=== PATIENT | male | born 1980 | race Caucasian/White ===

== ENCOUNTER 2018-04-24 20:09 | Emergency (ER) | payer OTHER ==
[2018-04-24 20:30] VITALS: BP 136/82
[2018-04-24] MEDS ORDERED: AMOX/CLAV 875 MG/125 MG TABLET PO STA (20:39)
[2018-04-24] MEDS ORDERED: HYDROcod/ACET 5/325 Prepack 4 PO STA (20:39)
--- NOTE | 2018-04-24 20:41 | ED Physician Documentation ---
History of Present Illness - Stated complaint Stated Complaint: SWOLLEN RT FACE - Chief complaint Chief Complaint: General - History obtained from History obtained from: Patient - History of Present Illness Timing: Today (This is a 37-year-old gentleman who is active duty in the [employer] who developed acutely painful swelling over the right jaw today associated with body aches and fevers. No recent travel, no cat scratches. He does not have any health problems. He said he had a similar episode a couple of months ago and did not seek medical treatment and it resolved with Motrin at home. He notes no night sweats or weight loss.) Review of Systems Constitutional: reports: Fever, Chills. denies: Fatigue, Weight Loss, Sweats Ears: denies: Loss of hearing, Ear pain Nose: denies: Rhinorrhea / runny nose, Congestion Throat: denies: Sore throat Cardiac: denies: Chest pain / pressure, Palpitations Respiratory: denies: Dyspnea, Cough PD PAST MEDICAL HISTORY - Past Medical History Past Medical History: No Cardiovascular: None Respiratory: None Neuro: None Endocrine/Autoimmune: None GI: None : None HEENT: Chronic sinusitis Psych: None Musculoskeletal: None Derm: None - Past Surgical History Past Surgical History: Yes HEENT: Other - Present Medications Home Medications: Ambulatory Orders Medication Instructions Recorded Confirmed Amox/Clav 875/125 [Augmentin] 1 each PO Q12H #20 tablet 04/24/18 HYDROcod/ACETAM 5/325 [Delmont 5/325] 1 - 2 ea PO Q6H PRN #7 tablet 04/24/18 - Allergies Allergies/Adverse Reactions: Allergies Allergy/AdvReac Type Severity Reaction Status Date / Time No Known Drug Allergies Allergy Verified 04/24/18 20:27 - Social History Does the pt smoke?: No Smoking Status: Never smoker Does the pt drink ETOH?: No Does the pt have substance abuse?: No - Immunizations Immunizations are current?: Yes - POLST Patient has POLST: No PD ED PE NORMAL - Vitals Vital signs reviewed: Yes - General General: Alert and oriented X 3, No acute distress - HEENT HEENT: Ears normal, Pharynx benign, Other (He has a pretty large and tender about 3 cm posterior submandibular lymph node, no other notable adenopathy about the head or neck. I do not see any obvious dental issues, he does have a lot of cavities. No rash or herpes.) - Cardiac Cardiac: RRR, No murmur - Respiratory Respiratory: No respiratory distress, Clear bilaterally - Abdomen Abdomen: Non tender - Psych Psych: Normal mood, Normal affect Results - Vitals Vitals: Vital Signs - 24 hr 04/24/18 20:20 Temperature 37.7 C H Heart Rate 99 Respiratory 20 Rate Blood Pressure 136/82 H O2 Saturation 99 Oxygen O2 Source Room air PD MEDICAL DECISION MAKING - ED course ED course: This is a 37-year-old gentleman with acute unilateral likely bacterial lymphadenitis. He is treated with Augmentin and follow-up with his primary care physician was advised. - Sepsis Event Vital Signs: Vital Signs - 24 hr 04/24/18 20:20 Temperature 37.7 C H Heart Rate 99 Respiratory 20 Rate Blood Pressure 136/82 H O2 Saturation 99 Oxygen O2 Source Room air Departure - Departure Disposition: 01 Home, Self Care Clinical Impression: Lymphadenitis Condition: Good Record reviewed to determine appropriate education?: Yes Instructions: ED Cervical Adenitis Abx Tx Prescriptions: Amox/Clav 875/125 [Augmentin] 1 each PO Q12H #20 tablet HYDROcod/ACETAM 5/325 [Delmont 5/325] 1 - 2 ea PO Q6H PRN #7 tablet PRN Reason: Pain Comments: Call your doctor to arrange a follow-up appointment, make the next available appointment. In the interim, return anytime if worse or if new symptoms develop.
== END 2018-04-24 20:49 | disposition home or self-care (01) ==
LOC: ED 20:09
DX: I88.9 Nonspecific lymphadenitis, unspecified (principal)
CPT/HCPCS: 99283; A9270

== ENCOUNTER 2019-05-05 07:36 | Outpatient (CLI) | payer OTHER ==
[2019-05-05] MEDS ORDERED: GADOBUTROL 10 MMOL/10 ML VIAL ONE (08:28)
[2019-05-05] MEDS ORDERED: GADOBUTROL 10 MMOL/10 ML VIAL IV ONE (08:30)
--- NOTE | 2019-05-05 17:35 | MRI Report ---
Reason: LOW BACK PAIN Procedure Date: 05/05/2019 Accession Number: [id number] / [id number] Procedure: MRI - Lumbar Spine W/WO CPT Code: FULL RESULT: EXAM: MRI LUMBAR SPINE WITHOUT AND WITH CONTRAST. EXAM DATE: 05/05/2019 08:06 AM. CLINICAL HISTORY: Low back pain. Symptoms worsening recently. COMPARISONS: None. TECHNIQUE: Multiplanar, multisequence T1-weighted and fluid-sensitive sequences of the lumbar spine from T12 to S1 before and after administration of intravenous contrast. Other: None. IV contrast: 10 cc Gadavist. FINDINGS: Neurologic Structures: The conus terminates at T12-L1. The conus medullaris and cauda equina are unremarkable. No abnormal enhancement is seen within the thecal sac. Alignment: Mild, 3 mm, spondylolisthesis is seen at L5-S1. L5 bilateral spondylolysis is present. No bone marrow or paraspinous edema is seen at the level of the pars interarticularis defects. Bone Marrow: Five mry-yai-dlhageg lumbar vertebral bodies are assumed. No gross fractures or bone lesions. No bone marrow replacement or abnormal enhancement. Disk Levels/Facets: T12-L1: Unremarkable. L1-L2: Unremarkable. L2-L3: Unremarkable. L3-L4: Unremarkable. L4-L5: Unremarkable. L5-S1: Unremarkable. Spinal Canal: No enhancing masses within the spinal canal. No epidural abscess. The spinal canal is capacious. Musculature: Normal. No edema, abnormal enhancement, or fatty atrophy. Other: The visualized retroperitoneum is unremarkable. IMPRESSION: 1. L5 bilateral spondylolysis with pars interarticularis defects. Mild, 3 mm, spondylolisthesis is seen. No adjacent bone marrow or paraspinous edema or enhancement is seen to suggest acute injury. 2. Unremarkable MRI of the lumbar spine. No significant spondylosis. No canal, lateral recess, or foraminal stenosis. Comment: The following findings are so common in adults without low back pain that while we report their presence, they must be interpreted with caution and in the context of the clinical situation. (Reference Meagank et al, Spine 2001) Prevalence of findings in patients without low back pain: Disk degeneration (any evidence): 92% Disk desiccation/T2 signal loss: 83% Disk height loss: 56% Disk bulge: 64% Disk protrusion: 32% Annular tear/high intensity zone: 38% RADIA
== END 2019-05-05 07:37 | disposition home or self-care (01) ==
LOC: DI 07:36
PROVIDERS: ATTEND General Practice
DX: M43.07 Spondylolysis, lumbosacral region (principal)
CPT/HCPCS: 72158; A9585

== ENCOUNTER 2019-06-11 07:49 | Outpatient (CLI) | payer OTHER ==
[2019-06-11] MEDS ORDERED: GADOBUTROL 15 MMOL/15 ML VIAL ONE (08:16)
[2019-06-11] MEDS ORDERED: GADOBUTROL 15 MMOL/15 ML VIAL IV ONE (10:10)
--- NOTE | 2019-06-11 14:47 | MRI Report ---
Reason: DORSALGIA, UNSPECIFIED Procedure Date: 06/11/2019 Accession Number: [id number] / [id number] Procedure: MRI - Thoracic Spine W/WO CPT Code: FULL RESULT: EXAM: MRI THORACIC SPINE WITHOUT AND WITH CONTRAST EXAM DATE: 06/11/2019 09:11 AM. CLINICAL HISTORY: 39-year-old with mid back pain that feels like a knife sticking in the back. Evaluate for thoracic pathology. COMPARISONS: MR lumbar spine 05/05/2019. TECHNIQUE: Multiplanar, multisequence T1-weighted and fluid-sensitive sequences of the thoracic spine from C7 to L1 before and after administration of intravenous contrast. Other: None. IV contrast: 11 mL Gadavist. FINDINGS: Spinal Cord: No signal abnormality in the visualized spinal cord. Alignment: No scoliosis or spondylolisthesis. Bone Marrow: No gross fractures or bone lesion. No bone marrow edema or abnormal enhancement. Disk Levels/Facets: C7-T1: Unremarkable. T1-T2: Unremarkable. T2-T3: Unremarkable. T3-T4: Unremarkable. T4-T5: Unremarkable. T5-T6: Unremarkable. T6-T7: Unremarkable. T7-T8: Unremarkable. T8-T9: Unremarkable. T9-T10: Unremarkable. T10-T11: Unremarkable. T11-T12: Unremarkable. T12-L1: Unremarkable. Spinal Canal: No enhancing masses within the spinal canal. No epidural abscess. Musculature: Normal. No edema, enhancement, or fatty atrophy. Other: The visualized mediastinum appears normal. Dependent atelectatic changes. Visualized upper abdomen appears normal. IMPRESSION: 1. No definite discitis/osteomyelitis seen. No epidural abscess or phlegmon. 2. No definite intraspinal mass or mass-like enhancement. 3. No definite disk bulge or protrusion seen within the thoracic spine. 4. No spinal canal stenosis or definite neural foraminal narrowing within the thoracic spine. RADIA
== END 2019-06-11 07:50 | disposition home or self-care (01) ==
LOC: DI 07:49
PROVIDERS: ATTEND General Practice
DX: M54.9 Dorsalgia, unspecified (principal)
CPT/HCPCS: 72157; A9585

== ENCOUNTER 2020-12-06 12:57 | Emergency (ER) | payer OTHER ==
[2020-12-06] MEDS ORDERED: TETANUS/DIPHTHERIA/PERTUSSIS 0.5 ML SYRINGE IM ONE (13:13)
--- NOTE | 2020-12-06 13:19 | ED Physician Documentation ---
History of Present Illness - Stated complaint Stated Complaint: L HAND INJURY - Chief complaint Chief Complaint: Wound - History obtained from History obtained from: Patient - Additonal information Additional information: 40-year-old male presents the emergency department for evaluation of a left thumb injury. He reports that on or about he cut the tip of his left thumb on a razor blade. He addressed the laceration at home and felt it had started to heal however he bumped or reinjured it multiple times causing it to open up and bleed. Since then he has had progressive swelling of the left thumb predominantly on the fat pad. He is a former [employer] retired 2 years he was seen at [facility] last week and completed a 1 week long course of amoxicillin today without relief of infection. He was seen again today and received a referral to hand surgery however due to the pain he does not feel that he can wait and presents to the emergency department. He denies any fevers, no red streaking. No history of MRSA infection. He is right-hand dominant. Review of Systems Constitutional: reports: Reviewed and negative Ears: reports: Reviewed and negative Nose: reports: Reviewed and negative Throat: reports: Reviewed and negative Cardiac: reports: Reviewed and negative Respiratory: reports: Reviewed and negative GI: reports: Reviewed and negative : reports: Reviewed and negative Skin: reports: Lesions (fat pad left thumb) Musculoskeletal: reports: Reviewed and negative Neurologic: reports: Reviewed and negative PD PAST MEDICAL HISTORY - Past Medical History Cardiovascular: None Respiratory: None Neuro: None Endocrine/Autoimmune: None GI: None : None HEENT: Chronic sinusitis Psych: None Musculoskeletal: None Derm: None - Past Surgical History Past Surgical History: Yes HEENT: Other - Present Medications Home Medications: Ambulatory Orders Medication Instructions Recorded Confirmed Sulfamethox/Trimeth 800/160 1 each PO BID #20 tablet 12/06/20 [Bactrim Ds 800/160] oxyCODONE [Roxicodone] 10 mg PO PRN PRN 12/06/20 12/06/20 - Allergies Allergies/Adverse Reactions: Allergies Allergy/AdvReac Type Severity Reaction Status Date / Time No Known Drug Allergies Allergy Verified 12/06/20 13:04 - Social History Does the pt smoke?: No Smoking Status: Never smoker Does the pt drink ETOH?: No Does the pt have substance abuse?: No - Immunizations Immunizations are current?: Yes - POLST Patient has POLST: No PD ED PE EXPANDED - Extremities Extremities: Left finger(s) (Left thumb swelling and erythema distal to the DIP. Fat pad itself is tender erythematous with healing scab distal tip. Tense fluid collection felt under fat pad) Results - Vitals Vitals: Vital Signs - 24 hr 12/06/20 13:00 Temperature 36.7 C Heart Rate 90 Respiratory 18 Rate Blood Pressure 138/92 H O2 Saturation 99 Oxygen O2 Source Room air - Rads (name of study) left thumb: Radiology: EMP read indepedently (No fracture, no foreign body. No evidence of osseous or bony destruction) PD MEDICAL DECISION MAKING - ED course Complexity details: reviewed results, re-evaluated patient, considered differential, d/w patient, d/w database reporting consultant (Allyssa) ED course: 40-year-old male presents the emergency department for evaluation of left thumb infection. This infection initially began on 11 November when cutting the tip of his finger on a razor blade. He did not initially seek medical care and felt that the laceration had healed but after multiple repeat traumas to the thumb he has developed an infection consistent with a felon. He completed a weeklong course of amoxicillin without relief of pain. He saw [facility] today and they referred him to hand surgery. He does not feel that he can wait that long. I discussed this case with on-call orthopedic Dr. Spivey. He would like to see the patient in office on . Office staff reports that they are working on prior authorization. I will initiate Bactrim twice daily for the next 10 days. Patient has an active prescription for Percocet. We will also recommend warm salt water soaks. Emergent return precautions discussed for worsening infection Departure - Departure Disposition: Home, Self Care Clinical Impression: Felon of finger of left hand Condition: Stable Record reviewed to determine appropriate education?: Yes Follow-Up: Chad Spivey MD [Provider Admit Priv/Credential] - Prescriptions: Sulfamethox/Trimeth 800/160 [Bactrim Ds 800/160] 1 each PO BID #20 tablet Comments: Mark I would like you to fill the prescription for the Bactrim and begin taking twice daily for the next 10 days. Please soak your thumb in warm Epson salt water 2-3 times a day. I have spoken with our on-call orthopedic surgeon Dr. Spivey. He would like to see you in office on . If you do not hear back from the office staff later this afternoon or early tomorrow morning please call tomorrow afternoon to confirm the appointment.Mark I would like you to fill the prescription for the Bactrim and begin taking twice daily for the next 10 days. Please soak your thumb in warm Epson salt water 2-3 times a day. I have spoken with our on-call orthopedic surgeon Dr. Spivey. He would like to see you in office on . If you do not hear back from the office staff later this afternoon or early tomorrow morning please call tomorrow afternoon to confirm the appointment.
[2020-12-06] MEDS ORDERED: SULFAMETH/TRIMETH DS 800/160 MG TABLET PO STA (13:22)
--- NOTE | 2020-12-06 13:42 | XRAY Report ---
PROCEDURE: Finger(s) LT INDICATIONS: felon left thumb TECHNIQUE: AP hand, 2 views of the first finger(s) acquired. COMPARISON: None FINDINGS: Bones: No fractures or dislocations. No suspicious bony lesions. Soft tissues: No suspicious soft tissue calcifications. IMPRESSION: No gross acute left thumb fracture or dislocation. Reviewed by: Ariel Walker MD on 12/06/2020 1:41 PM PST Approved by: Ariel Walker MD on 12/06/2020 1:41 PM [facility] Station ID: [id number]
[2020-12-06 13:43] VITALS: BP 141/90
== END 2020-12-06 13:43 | disposition home or self-care (01) ==
LOC: ED 12:57
DX: L03.012 Cellulitis of left finger (principal); S61.012D Laceration without foreign body of left thumb without damage to nail, subsequent encounter; W27.8XXD Contact with other nonpowered hand tool, subsequent encounter; Z23 Encounter for immunization
CPT/HCPCS: 73140; 90471; 90715; 99281; 99283; A9270

== ENCOUNTER 2020-12-08 14:28 | Outpatient (CLI) | payer OTHER | END 2020-12-08 23:59 | disposition home or self-care (01) | LOC: LAB.N 14:28 | PROVIDERS: ATTEND Orthopaedic Surgery | DX: L03.019 Cellulitis of unspecified finger (principal) | CPT/HCPCS: 87070; 87181; 87205 ==

== ENCOUNTER 2020-12-09 19:22 | Emergency (ER) | payer OTHER ==
[2020-12-09 19:29] VITALS: BP 153/92
--- NOTE | 2020-12-09 20:42 | ED Physician Documentation ---
History of Present Illness - Stated complaint Stated Complaint: LT THUMB LAC - Chief complaint Chief Complaint: Laceration - History obtained from History obtained from: Patient - History of Present Illness Timing: Today Pain level max: 6 Pain level now: 6 - Additonal information Additional information: Patient states he was instructed to remove the packing from his left thumb tonight. States unable to remove. Saw orthopedics yesterday. Review of Systems Constitutional: denies: Fever, Chills PD PAST MEDICAL HISTORY - Past Medical History Cardiovascular: None Respiratory: None Neuro: None Endocrine/Autoimmune: None GI: None : None HEENT: Chronic sinusitis Psych: None Musculoskeletal: None Derm: None - Past Surgical History Past Surgical History: Yes HEENT: Other - Present Medications Home Medications: Ambulatory Orders Medication Instructions Recorded Confirmed oxyCODONE [Roxicodone] 10 mg PO PRN PRN 12/06/20 12/09/20 cephALEXin [Keflex] 500 mg PO QID 12/09/20 12/09/20 - Allergies Allergies/Adverse Reactions: Allergies Allergy/AdvReac Type Severity Reaction Status Date / Time No Known Drug Allergies Allergy Verified 12/09/20 19:24 - Social History Does the pt smoke?: No Smoking Status: Never smoker Does the pt drink ETOH?: No Does the pt have substance abuse?: No - Immunizations Immunizations are current?: Yes - POLST Patient has POLST: No PD ED PE NORMAL - Vitals Vital signs reviewed: Yes - General General: Alert and oriented X 3, No acute distress - Derm Derm: Warm and dry - Extremities Extremities: Other (L thumb - wound to pad of thumb. packing in place. ) - Neuro Neuro: Alert and oriented X 3 Results - Vitals Vitals: Vital Signs - 24 hr 12/09/20 19:25 Temperature 36.7 C Heart Rate 75 Respiratory 18 Rate Blood Pressure 153/92 H O2 Saturation 100 Oxygen O2 Source Room air PD MEDICAL DECISION MAKING - ED course Complexity details: reviewed old records, considered differential, d/w patient ED course: I attempted to contact Dr. Spivey several times, no callback received. Patient states that he was told to remove the packing tonight. Packing was removed. Tolerated well. Bandaging applied. We will have him follow-up with orthopedics on Saturday as scheduled. Patient counseled regarding signs and symptoms for which I believe and urgent re-evaluation would be necessary. P atient with good understanding of and agreement to plan and is comfortable going home at this time This document was made in part using voice recognition software. While efforts are made to proofread this document, sound alike and grammatical errors may occur. Departure - Departure Disposition: 01 Home, Self Care Clinical Impression: Felon of finger of left hand Condition: Good Instructions: ED Wound Care Follow-Up: Chad Spivey MD [Provider Admit Priv/Credential] - Within 3 Days Comments: Continue your antibiotics as previously prescribed. Follow-up with Dr. Spivey on Saturday as scheduled. Return if you worsen Discharge Date/Time: 12/09/20 20:51
== END 2020-12-09 20:51 | disposition home or self-care (01) ==
LOC: ED 19:22
DX: L03.012 Cellulitis of left finger (principal); Z48.00 Encounter for change or removal of nonsurgical wound dressing
CPT/HCPCS: 99281; 99282

== ENCOUNTER 2022-12-07 10:37 | Outpatient (CLI) | payer OTHER ==
[2022-12-07 11:25] VITALS: BP 118/74
--- NOTE | 2022-12-07 11:25 | SLEEP CARE CONSULTATION ---
Information from patient questionnaire entered by Wanda Araujo. I have reviewed and concur with the information entered by Wanda Araujo. This document represents the service I personally performed and the decisions made by me, Rosalba Seals ARNP. History of Present Illness Service Date and Time: 12/07/2022 1037 Reason for Visit: New patient, Previously diagnosed sleep apnea, sleep apnea on CPAP therapy Chief Complaint: reports: Unrefreshed sleep, Fatigue, Frequent awakenings at night, Other (UPDATE SUPPLIES) Date of Onset: 10+YRS Usual bedtime: 11PM Time it takes to fall asleep: 20-30 min Snores at night: Yes Observed to quit breathing while asleep: Yes Sleeps alone due to snoring: Yes Number of times waking at night: 2 Reasons for waking at night: reports: Snoring, Gasping for air, Pain, Bathroom, Other (NOISE) Toss, Turn, or Twitch while sleeping: Yes Recalls having dreams: Yes Usually gets out of bed at: 7AM Feels refreshed in the morning: No Morning headache: No Sleepy or fatigued during the day: Yes Ever fallen asleep while driving: No Takes day naps: No Dreams during day naps: No Prior sleep studies: Yes Year and Where: 2014 Additional HPI information: MARK ROBLERO was previously diagnosed to have unknown, AHI unknown, sleep apnea-hypopnea syndrome and comes in today to establish care for CPAP therapy. - Parasomnia Symptoms Ever been unable to move upon waking from sleep: No Walks in sleep: No Talks in sleep: Yes Ever acted out dreams in sleep: Yes Ever felt weak in the knees when startled or emotional: No Bothered by creepy, crawly, restless sensations in legs: No Problems with memory or concentration: Yes CPAP Compliance Data - Data Reviewed with Patient Average duration of nightly device use: 5 hours 23 minutes Compliance rate %: 14 ( days used; 33% in 30 days; 08/2022-12/06/2022) Current pressure setting (cmH2O): 7-9 Average residual AHI: 5.7 Central apnea: 0.1 Obstructive apnea: 3.8 Hypopnea: 1.8 Average large leak: 8.8 lpm Compliance data discussion: Patient has a ResMed Airsense 10 that he received in 09/2014. He has been sporadically using it for long time. He is using a full face mask, ResMed AirFit F10. He has issues with the humidifier either giving too much moisture or none without much adjustment. He tried 5 to 6, 5 was too dry and 6 too wet. Subjective Missed days of use due to: reports: other (chronic back pain; sinus issues) Patient concerns: reports: mask leak noise, condensation in mask/hose, dry mouth, nose, throat. denies: aerophagia, mask discomfort, air blowing in eyes, nasal congestion, epistaxis Observed to snore while using device: No Current pressure setting perceived as: too low On therapy, patient: denies: drowsiness while driving Initial [place] Sleepiness Scale score: 11 (12/07/22) Past Medical History Past Medical History: reports: Arthritis, Other (SINUS PROBLEMS) Social History The patient's occupation is a [employer]. Patient is and lives in [place]. Have you smoked in the past 12 months: No Alcohol use: No Caffeine use: Yes Caffeine amount and frequency: VARIES DAILY Family History Family history of sleep disordered breathing: No Family Hx Sleep Apnea: Father: Snoring Allergies and Home Medications Known drug allergies: No Drug allergies reviewed: Yes (NKDA) Home medication list reviewed: Yes Allergy and home medication list: Medications: Advil, prn Aleve, prn Review of Systems Weight gain over past 5 years: 25 Cardiovascular: denies: high blood pressure Respiratory: denies: shortness of breath Gastrointestinal: denies: heartburn Neurological: denies: headaches Psychiatric: denies: anxiety, depression Ear/Nose/Throat: reports: nasal congestion, sinus problems, dry mouth/throat, wisdom teeth removed Musculoskeletal: reports: back pain Immunologic: reports: sneezing. denies: allergies to food or environment Physical Exam Vital signs obtained and entered by: WANDA Gray MA Blood Pressure: 118/74 (LEFT ARM) Cuff size: regular Heart Rate: 74 O2 Saturation: 99 Height: 5 ft 10 in Weight: 240 lb 12.8 oz Body Mass Index: 34.5 BMI Classification: Obese Neck circumference: 17.25 Heart: regular rate and rhythm Lungs: clear bilaterally Impression and Plan 1. Obstructive Sleep Apnea-Hypopnea Syndrome, unknown, with poor treatment compliance and fair apnea control. He will try to help us get a copy of his last sleep study done at [facility] lab in about 2013. Mark's residual AHI is minimally elevated at 5.7. He also feels the pressure to be too low. The patients pressure will be changed to autoCPAP 8-10 cmH20 for elevation of residual AHI and patient comfort. Patient advised to contact me if pressure change is uncomfortable so that it can be adjusted. Goals for apnea control discussed. He has not been able to obtain supplies for a long time. I will have my casting coordinator inform of DME options. The patients CPAP is over 5 years old and of reasonable use. In addition, it's humidifier does not seem to be working effectively, a sign of malfunction. Thus, the CPAP will be updated. The new CPAPs also have a better humidity system which could assist control of patients dryness symptoms. A DWO prescription will be made. Compliance guidelines for new device and follow up discussed. Patient's apnea severity and rationale for treatment to reduce apnea, improve sleep quality and reduce cardiovascular and cerebrovascular events was reviewed. I will write prescription for new device and supplies once I have a copy of his sleep study. If we are unable to obtain a copy of sleep study, we will have him do another sleep study to verify diagnosis and severity. Patient voiced understanding. * Change auto CPAP pressure to 8-10 cmH2O * Update machine * Update supplies * Notify me if snoring with mask or feeling that the pressure is too much or too little * Attempt to lose weight * Call this office if any problems using CPAP * Return for follow up one month after obtaining new device, or sooner if concerns arise Counseling Topics: Weight loss health impact Visit Type: In Office Time Spent with Patient (minutes): 31 Provider Statement: I spent 100% of the Face to Face Visit with the patient with greater than 50% spent counseling the patient and coordination of care.
== END 2022-12-07 10:38 | disposition home or self-care (01) ==
LOC: SC 10:37
PROVIDERS: ATTEND Nurse Practitioner Family
DX: G47.33 Obstructive sleep apnea (adult) (pediatric) (principal); E66.9 Obesity, unspecified; Z68.34 Body mass index [BMI] 34.0-34.9, adult
CPT/HCPCS: 99203; 99212